=== PATIENT | male | born 1985 | race Caucasian/White ===

== ENCOUNTER 2019-09-30 22:00 | Emergency (ER) | payer OTHER ==
[~2019-09-30] VITALS: Ht 157.5 cm; Wt 63.5 kg
[2019-09-30 22:42] LABS: ABSOLUTE EOSINOPHILS 0.1 thou/uL (0.0-0.7); ABSOLUTE LYMPHOCYTES 2.5 thou/uL (0.8-5.3); ABSOLUTE MONOCYTES 0.6 thou/uL (0.0-1.2); ABSOLUTE NEUTROPHILS 4.2 thou/uL (1.6-8.1); BASOPHILS 0.6 %; EOSINOPHILS 1.1 %; HEMATOCRIT 44.1 % (42.0-52.0); HEMOGLOBIN 15.3 gm/dL (14.0-18.0); LYMPHOCYTES 33.5 %; MCHC 34.8 g/dL (28.0-37.0); MONOCYTES 7.8 %; MPV 7.8 fl. (7.2-11.1); NUCLEATED RBCS 0 /100WBC; PLATELET COUNT* 308 thou/uL (150-400); RBC 4.64 mil/uL (4.50-6.00); RDW-CV 13.2 % (10.5-14.5); WBC 7.4 thou/uL (4.0-11.0)
[2019-09-30 22:48] LABS: CALCIUM 8.4 mg/dL (8.5-10.1); CREATININE 1.3 mg/dL (0.6-1.3); POTASSIUM 3.1 mmol/L (3.5-5.1)
[2019-09-30 23:03] LABS: ALBUMIN 4.4 g/dL (3.4-5.0); TOTAL BILIRUBIN 0.8 mg/dL (<0.1-1.0); TOTAL PROTEIN 8.4 g/dL (6.4-8.2)
[2019-09-30] MEDS ORDERED: COZAAR 50 MG TA50 M1 PO (23:17)
[2019-09-30] MEDS ORDERED: KLOR-CON M2020 MEQ PO (23:21)
[2019-09-30 23:46] VITALS: BP 149/90
--- NOTE | 2019-10-01 12:42 | EKG ---
[place] [address] ELECTROCARDIOGRAM REPORT Name: ELÍAS ROSAS Room: [facility]#: [id number] Admission: 09/30/19 Attend Phys: Discharge: 09/30/19 Date of : 81 Date of Service: 09/30/195 Report #: [id number] THIS REPORT FOR: //name// [facility] ED Test Date: 2019-09-30 Test Time: 22:25:47 Pat Name: ELÍAS BEAR BAUTISTA Department: Room: Gender: M It Help Desk Technician: MELINA : 1985 Requested By: Charly Bazan Order Number: [id number] MD: Hans Roth Measurements Intervals [place] Rate: 94 P: 38 MS: 158 QRS: 66 QRSD: 97 T: 26 QT: 343 QTc: 429 Interpretive Statements Sinus rhythm No previous ECG available for comparison Electronically Signed On 10-01-2019 12:42:51 CDT by Hans Roth [email or web address] <ELECTRONICALLY SIGNED> By: Hans Roth MD, [facility] 10/01/19 1242 2225 24 Hans Roth MD, [facility] /EPI
== END 2019-09-30 23:40 | disposition home or self-care (01) ==
LOC: M.ERS 22:00
PROVIDERS: Emergency Medicine Emergency Medical Services
DX: I10 Essential (primary) hypertension (principal)